=== PATIENT | female | born 1940 | race Caucasian/White ===

== ENCOUNTER 2018-01-09 01:57 | Day surgery (SDC) | payer MEDICARE, BC ==
[~2018-01-09] VITALS: Ht 165.1 cm; Wt 65.8 kg
[~2018-01-09 01:57] MED LIST: METH2.5T43 PO; PRED-1 PO
[2018-01-09 11:00] VITALS: BP 130/81
[2018-01-09] MEDS ORDERED: LIDOCAINE/SOD BICARB 8.4% SYR ID ONE (12:10)
[2018-01-09] MEDS ORDERED: BACITRACIN/POLYMY B OINT 15 GM TP ONE (12:10)
[2018-01-09] MEDS ORDERED: MIDAZOLAM 2 MG/2 ML VIAL IVP PRN (12:10)
[2018-01-09] MEDS ORDERED: HYDROCORTISONE 100 MG/2 ML IVP ONE (12:10)
[2018-01-09] MEDS ORDERED: ceFAZolin(*) 1 GM VIAL 1 GM in NS(*) 0.9% 100 ML ADDVANT BAG 100 ML IVPB ONE (12:10)
[2018-01-09] MEDS ORDERED: CELECOXIB 200 MG CAP PO ONE (12:10)
[2018-01-09] MEDS ORDERED: ROPIVACAINE 0.2% 20 ML VIAL ONE (12:10)
[2018-01-09] MEDS ORDERED: FAMOTIDINE 20 MG TAB PO ONE (12:10)
[2018-01-09] MEDS ORDERED: NORMOSOL R SOLN(*) 1000 ML BAG 1,000 ML IV PRN (12:10)
[2018-01-09] MEDS ORDERED: ONDANSETRON 4 MG/2 ML VIAL ONE (12:29)
[2018-01-09] MEDS ORDERED: LIDOCAINE MPF 1% 5 ML VIAL ONE (12:29)
[2018-01-09] MEDS ORDERED: DEXAMETHASONE SOD PHOS 10MG/ML ONE (12:29)
[2018-01-09] MEDS ORDERED: PROPOFOL EMUL(*) 10MG/ML 20 ML 20 ML ONE (12:29)
[2018-01-09] MEDS ORDERED: fentaNYL CITR 100 MCG/2 ML AMP ONE (12:30)
[2018-01-09] MEDS ORDERED: KETAMINE HCL-NS 50 MG/5 ML SYR ONE (12:30)
[2018-01-09] MEDS ORDERED: HYDR-385 PO (15:39)
[2018-01-09] MEDS ORDERED: CEPH500T7 PO (15:39)
[2018-01-09 16:00] VITALS: BP 128/79
[2018-01-09] MEDS ORDERED: ACETAMINOPHEN 500 MG TAB ONE (16:02)
[2018-01-09 16:30] VITALS: BP 126/85
[2018-01-09 16:35] VITALS: BP 115/74
[2018-01-09 16:37] VITALS: BP 116/76
--- NOTE | 2018-01-09 21:30 | OPERATIVE REPORT 1 ---
EVENT DATE: January 09, 2018 SURGEON: Aleksandar Finley MD ANESTHESIOLOGIST: Loki Yanez MD ANESTHESIA: General. 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 PROCEDURES PERFORMED 1. Right long metacarpophalangeal arthroplasty with right Benítez silastic prosthetic implant (75248). 2. Collateral ligament advancement with local tissue (62134), radial side. 3. Centralization of extensor tendon involving ulnar sagittal band release and radial sagittal band reefing (90641). ESTIMATED BLOOD LOSS Minimal. INTRAVENOUS FLUIDS 1100 TOURNIQUET TIME 42 SPECIMENS No specimens. COMPLICATIONS No complications. IMPLANTS USED [employer] Benítez #4 with no grommets used. SUMMARY OF PROCEDURE The patient was brought into the operating room and placed on the OR table in the supine position. After attaining adequate general anesthesia, the right upper extremity was prepped and draped in the usual sterile fashion. The limb was exsanguinated, and the tourniquet was inflated to 250 mmHg. The hand table had been positioned at her right side. A curved incision was made overlying the long MP joint, taking care not to incise directly over the specialized tissue at the extensor crease. We then retracted this towards the radial side and exposed the underlying joint. At this point, I was able to flex the finger down and observe the location of the laxity allowing for subluxation. Interestingly, the distal portion of the sagittal band was actually in good condition. It was the proximal portion of the sagittal band that was lax on the radial side with a small longitudinal tear and fairly tight on the ulnar side, causing this subluxation. I made a release on the ulnar sagittal band and retracted the tendons over towards the radial side and then incised the capsule longitudinally, exposing the arthritic joint. We used a rongeur to initially take off some of the osteophytes and then an oscillating saw to effect the back cut, after which we started with the regular starter awl, progressively increasing size up to a size 4 which I felt was a good stopping point. I could have probably gone up to a 5 on the metacarpal, but we did not think that it would be likely to get into the proximal phalanx with such a large size, so we started working on the distal side. It was a bit harder to get up in size there because of the fairly firm bone at the articular surface. We used a blunt tip jackie as necessary to open this space up, but ultimately, we got a nice fit for the size 4. A trial was made. I flexed and extended, and it seemed to work well, so we opened the final implant and inserted it, but I did notice at that point that in full flexion it seemed like it was engaging a little bit with the proximal phalanx against the volar surface of the metacarpal. Consequently, I took the implant out one more time, used a rongeur to trim some of this away a bit further, and then put the implant back in. We checked again, and it was far better. Prior to placing the implant, I had also temporarily placed a #2 FiberWire suture through the dorsal surface proximally, crossing the joint inside the joint and then coming back outside through the collateral ligament attachment distally, back in on itself, and then up to the articular margin at the origin of the radial collateral ligament. Once the implant was in, I then tensioned this to a degree that appeared to give a little bit of correction of her ulnar deviation. The wound was irrigated again, and then we assessed the condition of the extensor mechanism. I did not repair all of the ulnar sagittal band, but only the distal part that did not look too tight. Then, once I had finished doing about two-thirds of it from distal to proximal, I went across to the radial side and reefed the radial side across the defect to assist in keeping the tendon in place. We then fully flexed and extended and confirmed that it was riding right in the middle. The wound was irrigated. The tourniquet was deflated. Bipolar cautery was used where necessary for hemostasis, followed by closure in layers using 4-0 Vicryl for the capsule, the aforementioned 4-0 FiberWire for the extensor mechanism with the augmentation that had been previously placed using the 2-0 FiberWire. For skin, 4-0 nylon was used. She was given a local anesthetic and then a radial gutter splint holding the MCP joint in extension, but leaving the PIP and DIP joints able to flex. She was then awakened and transferred to the recovery area in stable condition. TERRENCE
== END 2018-01-09 16:00 | disposition home or self-care (01) ==
LOC: OR 01:57
PROVIDERS: ATTEND Orthopaedic Surgery Hand Surgery
DX: S63.212A Subluxation of metacarpophalangeal joint of right middle finger, initial encounter (principal); M19.041 Primary osteoarthritis, right hand
CPT/HCPCS: 26437; 26531; A4565; A9270; J0690; J1100; J1720; J2001; J2405; J2704; J2795; J3010; J3490; J7050; L8630